=== PATIENT | male | born 1945 | race Asian ===

== ENCOUNTER 2019-11-19 14:16 | Inpatient (IN) | payer OTHER ==
--- NOTE | 2019-11-19 14:37 | PDOC ---
Rapid Medical Evaluation Time Seen by Provider: 11/19/19 14:31 Medical Evaluation: 11/19/19 14:31 CC: weakness, vomiting and COOMBS s/p fall 3 days ago. 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 Orders: Cardiac w/u, Head CT, influenza test Patient will proceed to the ED for further evaluation. Discharge Disposition - Diagnosis Weakness - Referrals - Patient Instructions - Post Discharge Activity
--- NOTE | 2019-11-19 16:58 | PDOC ---
History of Present Illness - General Chief Complaint: Weakness Stated Complaint: VOMITING Time Seen by Provider: 11/19/19 14:31 - History of Present Illness Initial Comments: 11/19/19 16:49 73 yo M with h/o DM, CVA (left facial droop) who p/w headache, dull right sided chest pain s/p fall (11-18-18). Patient at bedside to assist in report. Patient Slovak speaking. Supervisor [employer] services required. states that patient experienced fall at 2:30 PM when urinating. Patient states that he fell forward and hit his head on tile floor, with absent LOC, or convulsions. Patient on ground for 1 minute, before up, assisted by . states that patient also experienced another fall 1:00 AM this morning while standing drinking water. Patient reports pleuritic, dull right sided chest pain x 3 days , with absent cough. Endorses diffuse, dull, mild headache. Patient endorses lightheadedness x 3 months.Reports vomiting 3-4 emesis per month Endorses AC use. Patient being treated for ear infection, due to 2 weeks of right sided ear pain. 2 weeks of Amoxicillin. reports patient has had elevated BS~400's today per . Patient denies vision change, neck pain, tinnitus, palpitations, cough, wheezing, orthopena, PND, leg swelling/pain, F,C, SOB, urinary complaints, hematuria, BPR, abdominal pain, diarrhea, constipation, weakness, sensory changes. PMHx: as noted above ROS: as noted SHx: Denies Etoh, IVDA, tobacco use Allergies: NKDA Past History - Past Medical History Allergies/Adverse Reactions: Allergies Allergy/AdvReac Type Severity Reaction Status Date / Time No Known Allergies Allergy Verified 11/19/19 14:43 - Psycho Social/Smoking Cessation Hx Smoking History: Unknown if ever smoked Have you smoked in the past 12 months: No Hx Alcohol Use: No Drug/Substance Use Hx: No Review of Systems - Review of Systems Comments:: 11/19/19 17:01 GENERAL/CONSTITUTIONAL: No fever or chills. No weakness. HEAD, EYES, EARS, NOSE AND THROAT: + Ear pain. No change in vision. No discharge. No sore throat. CARDIOVASCULAR: No chest pain or shortness of breath RESPIRATORY: No cough, wheezing, or hemoptysis. GASTROINTESTINAL: + nausea, vomiting. No diarrhea or constipation. GENITOURINARY: No dysuria, frequency, or change in urination. MUSCULOSKELETAL: No joint or muscle swelling or pain. No neck or back pain. SKIN: No rash NEUROLOGIC: +headache. No vertigo, loss of consciousness, or change in strength/ sensation. ENDOCRINE: No increased thirst. No abnormal weight change HEMATOLOGIC/LYMPHATIC: No anemia, easy bleeding, or history of blood clots. ALLERGIC/IMMUNOLOGIC: No hives or skin allergy. *Physical Exam - Vital Signs Last Vital Signs Temp Pulse Resp BP Pulse Ox 97.6 F 102 H 18 122/78 96 11/19/19 14:35 11/19/19 14:35 11/19/19 14:35 11/19/19 14:35 11/19/19 14:35 - Physical Exam 11/19/19 17:02 GENERAL: Awake, alert, oriented to self, in no acute distress HEAD: No signs of trauma, normocephalic, atraumatic EYES: PERRLA, EOMI, sclera anicteric, conjunctiva clear ENT: + Dry mucous membranes. Auricles normal inspection, hearing grossly normal , nares patent, oropharynx clear without exudates. NECK: Normal ROM, supple, no lymphadenopathy, JVD, or masses LUNGS: No distress, speaks full sentences, clear to auscultation bilaterally HEART: Regular rate and rhythm, normal S1 and S2, no murmurs, rubs or gallops, peripheral pulses normal and equal bilaterally. ABDOMEN: Soft, nontender, normoactive bowel sounds. No guarding, no rebound. No masses EXTREMITIES : Normal inspection, Normal range of motion, no edema. No clubbing or cyanosis NEUROLOGICAL: + left sided facial droop, Cranial nerves II through XII grossly intact. Normal speech, no focal sensorimotor deficits BACK: Neg midline or paraspinal ttp. Neg step-off or bony deformity. Neg skin change. SKIN: Warm, Dry, normal turgor, no rashes or lesions noted ED Treatment Course - LABORATORY CBC & Chemistry Diagram: 11/19/19 16:24 11/19/19 16:24 Medical Decision Making - Medical Decision Making 11/19/19 16:58 73 yo M with h/o DM, CVA who p/w headache, right sided chest pain s/p fall (1-28 -19). GCS 14, A&OX2, HR 102, Vitals otherwise wnl, AF. No evidence head injury, or c-spine ttp. Neg evidence basilar skull fracture. No obvious skeletal abnml. Will obtain CTH r/o hemorrhage, hematoma, or skull fracture. Will evaluate for hypoglycemia, VBI/TIA, dysarrytmhias, electrolyte abnml, metabolic and toxic derangements, acid-base disturbances, infection. ED Course: CTH: No acute change 11/19/19 18:44 Laboratory Tests 11/19/19 11/19/19 16:24 16:24 WBC 13.3 H Hgb 12.7 Hct 38.2 Plt Count 294 Sodium 137 Potassium 4.2 Chloride 104 BUN 24.3 H Creatinine 0.8 Random Glucose 296 H Troponin I < 0.02 CXR: Right Middle Lobe Infiltrate Vanc/Zosyn Patient endorsed to Dr. Grissom. Admitted to med/surg Discharge - Discharge Information Problems reviewed: Yes Clinical Impression/Diagnosis: Weakness, Recurrent falls PNA (pneumonia) Qualifiers: Pneumonia type: due to unspecified organism Laterality: right Lung location: middle lobe of lung Qualified Code(s): J18.9 - Pneumonia, unspecified organism Condition: Stable - Admission Yes - Follow up/Referral Referrals: Dalton Ramirez [Primary Care Provider] - - Patient Discharge Instructions - Post Discharge Activity
[2019-11-19] MEDS ORDERED: SODIUM CHLORIDE 0.9% 1000 ML INFUS.BAG IV ONE (17:01)
[2019-11-19] MEDS ORDERED: METOCLOPRAMIDE HCL INJECTION 10 MG/2 ML VIAL IVPUSH ONE (17:01)
[2019-11-19] MEDS ORDERED: ACETAMINOPHEN 1000 MG/100 ML VIAL (NON FORMULARY) IVPB ONE (17:01)
[2019-11-19] MEDS ORDERED: METOCLOPRAMIDE HCL INJECTION 10 MG/2 ML VIAL ONE (17:13)
[2019-11-19] MEDS ORDERED: ACETAMINOPHEN INJECTION 100 ML IVPB ONE (17:13)
--- NOTE | 2019-11-19 17:47 | PDOC ---
Documentation entered by Greg Peacock SCRIBE, acting as scribe for Pat Rogers DO. Pat Rogers DO: This documentation has been prepared by the Ayush zarco Xhesika, SCRIBE, under my direction and personally reviewed by me in its entirety. I confirm that the documentation accurately reflects all work, treatment, procedures, and medical decision making performed by me. Attending Attestation - Resident Resident Name: Aaron Loco - ED Attending Attestation I have performed the following: I have examined & evaluated the patient, The case was reviewed & discussed with the resident, I agree w/resident's findings & plan, Exceptions are as noted - HPI HPI: 11/19/19 17:16 The patient is a 73 year old male with a significant PMH of DM, CVA (with residual L facial droop) who presents to the emergency department for s/p 2 falls. Pt is a poor historian but at bedside providing history. Per , the patient had his first fall yesterday at 2:30 PM when urinating. Pt states he hit his head on the floor, was on the floor for 1 minutes prior to helping him up. Patient denies LOC. states pt then had another fall today at 1am while standing, drinking water. states the patient is being treated with amoxicillin for an ear infection. The patient denies shortness of breath, and dizziness. Denies fever, chills, cough, nausea, vomiting, diarrhea and constipation. Denies dysuria, frequency, urgency and hematuria. Allergies: NKDA PCP: Dalton Brambila - Physicial Exam PE: 11/19/19 17:17 GENERAL: Awake, alert, and fully oriented, in no acute distress HEAD: No signs of trauma EYES: PERRLA, EOMI, sclera anicteric, conjunctiva clear ENT: +wax in canals. Normal TM. No bulging. Poor dentition. oropharynx clear without exudates. +dry mucosa. +L facial drrop from previous CVA. NECK: Normal ROM, supple, no lymphadenopathy, JVD, or masses LUNGS: Breath sounds equal, clear to auscultation bilaterally. No wheezes, and no crackles HEART: Regular rate and rhythm, normal S1 and S2, no murmurs, rubs or gallops ABDOMEN: Soft, nontender, normoactive bowel sounds. No guarding, no rebound. No masses EXTREMITIES: Normal range of motion, no edema. No clubbing or cyanosis. No cords, erythema, or tenderness NEUROLOGICAL: Cranial nerves II through XII grossly intact. SKIN: Warm, Dry, normal turgor, no rashes or lesions noted. - Medical Decision Making 11/19/19 17:46 I, Dr. Pat Rogers, DO, attest that this document has been prepared under my direction and personally reviewed by me in its entirety. I further attest, that it accurately reflects all work, treatment, procedures and medical decision -making performed by me. a/p: 73yo male s/p 2 falls yesterday, weakness, elevated glu and R sided cp -4 days of cp -has been on amox for ear infection from his PMD -pt states he felt weak while standing to urinate and fell twice -pt with dry cracked lips and tongue -no external signs of trauma -pt denies f/c -no abd pain -will send labs, head ct, ekg, cxr -will need obs vs admission 11/19/19 18:[address] with microvasc chronic changes, old infarct pt with cp and falls resident discussed the case with Dr. Grissom who accepts pt to service 11/19/19 18:45 pt with RML pna will add blood cultures and will start broad spectrum abx pt has been on augmentin for an ear infection for 2 weeks 11/19/19 18:46 pt with wbc 13 pt will be admitted
[2019-11-19 17:51] LABS: BASO % 0.2 % (0-2.0); EOS % 0.8 % (0-4.5); HEMATOCRIT 38.2 % (35.4-49); HEMOGLOBIN 12.7 GM/dL (11.7-16.9); LYMPH % 7.3 % (8-40); MCHC 33.2 g/dl (32.0-35.9); MEAN CELL VOLUME 93.6 fl (80-96); MEAN PLT VOLUME 7.3 fl (7.5-11.1); MONO % 6.9 % (3.8-10.2); NEUT % 84.8 % (42.8-82.8); PLATELET COUNT 294 K/MM3 (134-434); RBC 4.08 M/mm3 (4.00-5.60); RDW 13.4 % (11.9-15.9); WHITE BLOOD COUNT 13.3 K/mm3 (4.0-10.0)
[2019-11-19 17:54] LABS: ALBUMIN 2.5 g/dl (3.4-5.0); ALK PHOS 83 U/L (45-117); ANION GAP 10 MMOL/L (8-16); BILIRUBIN,TOTAL 0.5 mg/dL (0.2-1); BLOOD UREA NITROGEN 24.3 mg/dL (7-18); CALCIUM 8.3 mg/dL (8.5-10.1); CHLORIDE 104 mmol/L (98-107); CO2 24 mmol/L (21-32); CREATININE 0.8 mg/dL (0.55-1.3); GLUCOSE,RANDOM 296 mg/dL (74-106); LIPASE 86 U/L (73-393); MAGNESIUM 2.2 mg/dL (1.8-2.4); POTASSIUM 4.2 mmol/L (3.5-5.1); SGOT/AST 11 U/L (15-37); SGPT/ALT 14 U/L (13-61); SODIUM 137 mmol/L (136-145); TOT PROT 6.4 g/dl (6.4-8.2)
[2019-11-19 18:04] LABS: INR 1.1 (0.83-1.09)
[2019-11-19 18:07] LABS: ACTIVATED PTT 24.2 SECONDS (25.2-36.5)
[2019-11-19] MEDS ORDERED: PIPERACILLIN/TAZOB 4.5 GM 4.5 GM in DEXTROSE 5%-WATER 100 ML IVPB ONE (18:45)
[2019-11-19] MEDS ORDERED: VANCOMYCIN 1 GM in D5W (PRE-DOCKED) 1,000 MG/250 ML IVPB ONE (18:45)
[2019-11-19] MEDS ORDERED: PIPERACILLIN/TAZOB 4.5 GM 4.5 GM/100 ML BAG IVPB ONE (19:25)
[2019-11-19] MEDS ORDERED: VANCOMYCIN 1 GRAM (PRE-DOCKED) 1,000 MG/250 ML BAG IVPB ONE (19:25)
--- NOTE | 2019-11-19 20:57 | HP ---
Admitting History and Physical - Primary Care Physician PCP: Yanet Grissom - Admission History of Present Illness: 73 yo M with h/o DM, CVA (left facial droop) who p/w headache, dull right sided chest pain s/p fall (11-18-18). Patient at bedside to assist in report. Patient Hebrew speaking. [employer] services required. states that patient experienced fall at 2:30 PM when urinating. Patient states that he fell forward and hit his head on tile floor, with absent LOC, or convulsions. Patient on ground for 1 minute, before up, assisted by . states that patient also experienced another fall 1:00 AM this morning while standing drinking water. Patient reports pleuritic, dull right sided chest pain x 3 days , with absent cough. Endorses diffuse, dull, mild headache. Patient endorses lightheadedness x 3 months.Reports vomiting 3-4 emesis per month Endorses AC use. Patient being treated for ear infection, due to 2 weeks of right sided ear pain. 2 weeks of Amoxicillin. reports patient has had elevated BS~400's today per . Patient denies vision change, neck pain, tinnitus, palpitations, cough, wheezing, orthopena, PND, leg swelling/pain, F,C, SOB, urinary complaints, hematuria, BPR, abdominal pain, diarrhea, constipation, weakness, sensory changes. 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 Endocrine: Yes: Diabetes Mellitus - Smoking History Smoking history: Unknown if ever smoked Have you smoked in the past 12 months: No - Alcohol/Substance Use Hx Alcohol Use: No Home Medications - Allergies Allergies/Adverse Reactions: Allergies Allergy/AdvReac Type Severity Reaction Status Date / Time No Known Allergies Allergy Verified 11/19/19 14:43 Physical Examination Vital Signs: Vital Signs Temperature 97.6 F 11/19/19 14:35 Pulse Rate 102 H 11/19/19 14:35 Respiratory Rate 18 11/19/19 14:35 Blood Pressure 122/78 11/19/19 14:35 O2 Sat by Pulse Oximetry (%) 96 11/19/19 14:35 Constitutional: Yes: No Distress HENT: Yes: Atraumatic Neck: Yes: Supple Cardiovascular: Yes: Regular Rate and Rhythm Respiratory: Yes: CTA Bilaterally Gastrointestinal: Yes: Normal Bowel Sounds Extremities: Yes: WNL Labs: CBC, BMP 11/19/19 16:24 11/19/19 16:24 Imaging - Results Cat Scan: Report Reviewed Problem List - Problems (1) PNA (pneumonia) Assessment/Plan: on abx id on board cxs sent Code(s): J18.9 - PNEUMONIA, UNSPECIFIED ORGANISM Qualifiers: Pneumonia type: due to unspecified organism Laterality: right Lung location: middle lobe of lung Qualified Code(s): J18.9 - Pneumonia, unspecified organism (2) Recurrent falls Assessment/Plan: PT eval Code(s): R29.6 - REPEATED FALLS (3) Weakness Code(s): R53.1 - WEAKNESS Assessment/Plan Laboratory Tests 11/19/19 11/19/19 11/19/19 16:24 16:24 16:24 WBC 13.3 H RBC 4.08 Hgb 12.7 Hct 38.2 MCV 93.6 MCH 31.0 MCHC 33.2 RDW 13.4 Plt Count 294 MPV 7.3 L Absolute Neuts (auto) 11.2 H Neutrophils % 84.8 H Lymphocytes % 7.3 L Monocytes % 6.9 Eosinophils % 0.8 Basophils % 0.2 Nucleated RBC % 0 PT with INR 13.00 INR 1.10 H PTT (Actin FS) 24.2 L Sodium 137 Potassium 4.2 Chloride 104 Carbon Dioxide 24 Anion Gap 10 BUN 24.3 H Creatinine 0.8 Est GFR (CKD-EPI)AfAm 101.99 Est GFR (CKD-EPI)NonAf 88.00 Random Glucose 296 H Calcium 8.3 L Magnesium 2.2 Total Bilirubin 0.5 AST 11 L ALT 14 Alkaline Phosphatase 83 Creatine Kinase 102 Troponin I < 0.02 Total Protein 6.4 Albumin 2.5 L Lipase 86 Active Medications Generic Name Dose Route Start Last Admin Trade Name Freq PRN Reason Stop Dose Admin Acetaminophen 650 mg 11/19/19 20:59 Tylenol - PO Q6H PRN FEVER Heparin Sodium (Porcine) 5,000 unit 11/19/19 22:00 11/21/19 10:34 Heparin - SQ 5,000 unit BID STEVE Administration Ceftriaxone Sodium 1 gm/ 50 mls @ 100 mls/hr 11/20/19 14:30 11/21/19 10:34 Dextrose IVPB 100 mls/hr DAILY STEVE Administration Protocol Insulin Aspart 1 vial 11/19/19 22:00 11/21/19 17:12 Novolog Vial Sliding Scale - SQ 6 units ACHS STEVE Administration Protocol
[2019-11-19] MEDS ORDERED: ACETAMINOPHEN 325 MG TABLET (FP) PO PRN (20:59)
[2019-11-19 21:22] LABS: URINE APPEARANCE CLEAR; URINE BILIRUBIN NEGATIVE (NEGATIVE); URINE COLOR YELLOW; URINE GLUCOSE (UA) 3+ (NEGATIVE); URINE KETONE 1+ (NEGATIVE); URINE LEUK ESTERASE NEGATIVE (NEGATIVE); URINE NITRITE NEGATIVE (NEGATIVE); URINE PROTEIN TRACE (NEGATIVE); URINE UROBILINOGEN 0.2 mg/dL (0.2-1.0)
--- NOTE | 2019-11-19 23:54 | CON.NEURO ---
Consult Consult Specialty:: NEUROLOGY-EMILIA REHMAN - History of Present Illness History of Present Illness: 73 yo M with h/o DM, CVA (left facial droop) who p/w headache, dull right sided chest pain s/p fall (11-18-18). Patient at bedside to assist in report. Patient Nepali speaking. 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 states that patient experienced fall at 2:30 PM when urinating. Patient states that he fell forward and hit his head on tile floor, with absent LOC, or convulsions. Patient on ground for 1 minute, before up, assisted by . states that patient also experienced another fall 1:00 AM this morning while standing drinking water. Patient reports pleuritic, dull right sided chest pain x 3 days , with absent cough. Endorses diffuse, dull, mild headache. Patient endorses lightheadedness x 3 months.Reports vomiting 3-4 emesis per month Endorses AC use. Patient being treated for ear infection, due to 2 weeks of right sided ear pain. 2 weeks of Amoxicillin. reports patient has had elevated BS~400's today per . Patient denies vision change, neck pain, tinnitus, palpitations, cough, wheezing, orthopena, PND, leg swelling/pain, F,C, SOB, urinary complaints, hematuria, BPR, abdominal pain, diarrhea, constipation, weakness, sensory changes. Unable to relate further hx but appears to say he becomes 'lightheaded " and tends to fall forward, uses walker.?? duration. 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 Endocrine: Yes: Diabetes Mellitus - Alcohol/Substance Use Hx Alcohol Use: No - Smoking History Smoking history: Unknown if ever smoked Have you smoked in the past 12 months: No Home Medications - Allergies Allergies/Adverse Reactions: Allergies Allergy/AdvReac Type Severity Reaction Status Date / Time No Known Allergies Allergy Verified 11/19/19 14:43 Physical Exam-Neuro Vital Signs: Vital Signs Temperature 97.6 F 11/19/19 14:35 Pulse Rate 102 H 11/19/19 14:35 Respiratory Rate 18 11/19/19 14:35 Blood Pressure 122/78 11/19/19 14:35 O2 Sat by Pulse Oximetry (%) 96 11/19/19 14:35 Labs: CBC, BMP 11/19/19 16:24 11/19/19 16:24 INR, PTT INR 1.10 (0.83-1.09) H 11/19/19 16:24 - Neuro Exam Level Of Consciousness: Yes: Alert (unable to test est) Eyes: Yes: PERRL Mini Mental Exam: Unable to test but appears distractible Cranial Nerves II-XII Intact: Yes DTR's: 1+ Left Achilles, 1+ Right Achilles (bilat knees are 3+), 2+ Left Bicep, 2+ Right Bicep, 2+ Left Tricep, 2+ Right Tricep, 2+ Left Brachioradialis, 2+ Right Brachioradialis Motor Strength: 5/5: Left Arm, Right Arm, Left Leg, Right Leg Gait: Other (wide based, has increased tone in both legs?? urinary incontinence) Imaging - Results Cat Scan: Report Reviewed (old pontine lacunar infarcts) Assessment/Plan pt. with falls x2, he has a gait [id number] with walker), exam reveals increased tone in legs, bilat upgoing toes?? urinary incont. He may have fallen this time 2/2 dehydration/dizziness but not clear why he fell earlier this month?? cervical myelopathy given exam. suggest: fall precautions, B12, MRI Cspine, PT/ Rehab evaluation. Thank you, Stalin Torrez MD
[2019-11-20] MEDS ORDERED: HEPARIN NA (PORCINE) 5,000 UNITS/ML 1ML VIAL ONE (00:02)
[2019-11-20] MEDS: HEPARIN NA (PORCINE) 5,000 UNITS/ML 1ML VIAL SQ SCH ×3 (00:09→23:01)
[2019-11-20] MEDS ORDERED: INSULIN (NOVOLOG) ASPART 100 UNITS/ML 10ML VIAL ONE (00:58)
[2019-11-20] MEDS: INSULIN SLIDING SCALE (NOVOLOG) 1 VIAL SQ SCH ×5 (01:04→23:03)
[2019-11-20 08:21] LABS: ALBUMIN 2.4 g/dl (3.4-5.0); BILIRUBIN,TOTAL 0.8 mg/dL (0.2-1); BLOOD UREA NITROGEN 19.9 mg/dL (7-18); CALCIUM 8.2 mg/dL (8.5-10.1); CREATININE 0.6 mg/dL (0.55-1.3); POTASSIUM 3.6 mmol/L (3.5-5.1)
[2019-11-20 08:23] LABS: BASO % 0.2 % (0-2.0); EOS % 1.7 % (0-4.5); HEMATOCRIT 35.3 % (35.4-49); HEMOGLOBIN 11.9 GM/dL (11.7-16.9); LYMPH % 7.4 % (8-40); MCH 31.4 pg (25.7-33.7); MCHC 33.7 g/dl (32.0-35.9); MEAN CELL VOLUME 93.1 fl (80-96); MEAN PLT VOLUME 7.1 fl (7.5-11.1); MONO % 7.3 % (3.8-10.2); NEUT % 83.4 % (42.8-82.8); PLATELET COUNT 282 K/MM3 (134-434); RBC 3.79 M/mm3 (4.00-5.60); RDW 13.3 % (11.9-15.9); WHITE BLOOD COUNT 11.7 K/mm3 (4.0-10.0)
--- NOTE | 2019-11-20 12:40 | EKG ---
Test Reason : Blood Pressure : / mmHG Vent. Rate : 073 BPM Atrial Rate : 073 BPM P-R Int : 174 ms QRS Dur : 098 ms QT Int : 398 ms P-R-T Axes : 030 -32 022 degrees QTc Int : 438 ms NORMAL SINUS RHYTHM LEFT AXIS DEVIATION INCOMPLETE RIGHT BUNDLE BRANCH BLOCK ABNORMAL ECG NO PREVIOUS ECGS AVAILABLE Confirmed by LIS LANDERS MD ([id number]) on 11/20/2019 12:39:50 PM Referred By: Confirmed By:LIS LANDERS MD
--- NOTE | 2019-11-20 14:24 | CON.ID ---
Consult Consult Specialty:: infectious diseases Referred by:: Reason for Consultation:: uti,falls weakness - History of Present Illness Chief Complaint: falls,weakness History of Present Illness: history given by the son who is at bedside 73 yo M with h/o DM, CVA (left facial droop) who p/w headache, dull right sided chest pain s/p fall (11-18-18). states that patient experienced fall at 2: 30 PM when urinating. Patient states that he fell forward and hit his head on tile floor, with absent LOC, or convulsions. Patient on ground for 1 minute, before up, assisted by . states that patient also experienced another fall 1:00 AM this morning while standing drinking water. Patient reports pleuritic, dull right sided chest pain x 3 days, with absent cough. Endorses diffuse, dull, mild headache. Patient endorses lightheadedness x 3 months.Reports vomiting 3-4 emesis per month Endorses AC use. Patient being treated for ear infection, due to 2 weeks of right sided ear pain. 2 weeks of Amoxicillin. reports patient has had elevated BS~400's today per . Patient denies vision change, neck pain, tinnitus, palpitations, cough, wheezing, orthopena, PND, leg swelling/pain, F,C, SOB, urinary complaints, hematuria, BPR, abdominal pain, diarrhea, constipation, weakness, sensory changes. 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 Endocrine: Yes: Diabetes Mellitus - Alcohol/Substance Use Hx Alcohol Use: No - Smoking History Smoking history: Unknown if ever smoked Have you smoked in the past 12 months: No Home Medications - Allergies Allergies/Adverse Reactions: Allergies Allergy/AdvReac Type Severity Reaction Status Date / Time No Known Allergies Allergy Verified 11/19/19 14:43 Review of Systems - Review of Systems Constitutional: reports: Weakness Eyes: reports: No Symptoms HENT: reports: No Symptoms Neck: reports: No Symptoms Cardiovascular: reports: No Symptoms Respiratory: reports: No Symptoms Gastrointestinal: reports: No Symptoms Genitourinary: reports: No Symptoms Musculoskeletal: reports: No Symptoms Integumentary: reports: No Symptoms Neurological: reports: No Symptoms Endocrine: reports: No Symptoms Hematology/Lymphatic: reports: No Symptoms Psychiatric: reports: No Symptoms Physical Exam Vital Signs: Vital Signs Temperature 97.9 F 11/20/19 00:45 Pulse Rate 67 11/20/19 00:45 Respiratory Rate 16 11/20/19 00:45 Blood Pressure 107/61 11/20/19 00:45 O2 Sat by Pulse Oximetry (%) 96 11/20/19 00:45 Constitutional: Yes: No Distress, Calm Eyes: Yes: Conjunctiva Clear, EOM Intact HENT: Yes: Atraumatic, Normocephalic Neck: Yes: Supple, Trachea Midline Cardiovascular: Yes: Regular Rate and Rhythm Respiratory: Yes: Regular, CTA Bilaterally Gastrointestinal: Yes: Normal Bowel Sounds, Soft Musculoskeletal: Yes: WNL Extremities: Yes: WNL Neurological: Yes: Alert, Oriented Psychiatric: Yes: Alert, Oriented Labs: CBC, BMP 11/20/19 06:50 11/20/19 06:50 Imaging - Results Chest X-ray: Report Reviewed, Image Reviewed Cat Scan: Report Reviewed, Image Reviewed Assessment/Plan Problem List - Problems (1) PNA (pneumonia) Code(s): J18.9 - PNEUMONIA, UNSPECIFIED ORGANISM Qualifiers: Pneumonia type: due to unspecified organism Laterality: right Lung location: middle lobe of lung Qualified Code(s): J18.9 - Pneumonia, unspecified organism (2) Recurrent falls Code(s): R29.6 - REPEATED FALLS (3) Weakness Code(s): R53.1 - WEAKNESS 4 r/o uti patient with rt middle infiltrate probably aspiration plan will start ceftriaxone asp precautions await for urine report rest as per the team
[2019-11-20] MEDS: CEFTRIAXONE 1 GM in DEXTROSE 5%-WATER - 50 ML IVPB SCH (15:57)
[2019-11-20] MEDS ORDERED: CEFTRIAXONE 1 GM/50 ML BAG ONE (16:31)
--- NOTE | 2019-11-20 17:00 | PN ---
Progress Note, Physician - Current Medication List Current Medications: Active Medications Acetaminophen (Tylenol -) 650 mg PO Q6H PRN PRN Reason: FEVER Heparin Sodium (Porcine) (Heparin -) 5,000 unit SQ BID [facility] Last Admin: 11/20/19 09:35 Dose: 5,000 unit Ceftriaxone Sodium 1 gm/ (Dextrose) 50 mls @ 100 mls/hr IVPB DAILY [facility]; Protocol Last Admin: 11/20/19 15:57 Dose: 100 mls/hr Insulin Aspart (Novolog Vial Sliding Scale -) 1 vial SQ ACHS [facility]; Protocol Last Admin: 11/20/19 13:01 Dose: 4 units - Objective Vital Signs: Vital Signs Temperature 97.9 F 11/20/19 00:45 Pulse Rate 67 11/20/19 00:45 Respiratory Rate 16 11/20/19 00:45 Blood Pressure 107/61 11/20/19 00:45 O2 Sat by Pulse Oximetry (%) 96 11/20/19 00:45 Constitutional: Yes: No Distress HENT: Yes: Atraumatic Neck: Yes: Supple Cardiovascular: Yes: Regular Rate and Rhythm Respiratory: Yes: Rhonchi Gastrointestinal: Yes: Normal Bowel Sounds Extremities: Yes: WNL Labs: CBC, BMP 11/20/19 06:50 11/20/19 06:50 INR, PTT INR 1.10 (0.83-1.09) H 11/19/19 16:24 Problem List - Problems (1) PNA (pneumonia) Assessment/Plan: on abx id on board Code(s): J18.9 - PNEUMONIA, UNSPECIFIED ORGANISM Qualifiers: Pneumonia type: due to unspecified organism Laterality: right Lung location: middle lobe of lung Qualified Code(s): J18.9 - Pneumonia, unspecified organism (2) Recurrent falls Assessment/Plan: PT eval Code(s): R29.6 - REPEATED FALLS (3) Weakness Code(s): R53.1 - WEAKNESS
[2019-11-20] MEDS ORDERED: FLU VACCINE QUAD 60 MCG/0.5 ML (MDV 19-20) IM ONE (23:24)
[2019-11-20 23:57] VITALS: BMI 22.4
[2019-11-21] MEDS: INSULIN SLIDING SCALE (NOVOLOG) 1 VIAL SQ SCH ×4 (07:21→22:07)
--- NOTE | 2019-11-21 09:31 | PN ---
Progress Note, Physician History of Present Illness: patient stable looks much better - Current Medication List Current Medications: Active Medications Acetaminophen (Tylenol -) 650 mg PO Q6H PRN PRN Reason: FEVER Heparin Sodium (Porcine) (Heparin -) 5,000 unit SQ BID [facility] Last Admin: 11/20/19 23:01 Dose: 5,000 unit Ceftriaxone Sodium 1 gm/ (Dextrose) 50 mls @ 100 mls/hr IVPB DAILY [facility]; Protocol Last Admin: 11/20/19 15:57 Dose: 100 mls/hr Insulin Aspart (Novolog Vial Sliding Scale -) 1 vial SQ ACHS [facility]; Protocol Last Admin: 11/21/19 07:21 Dose: 6 units - Objective Vital Signs: Vital Signs Temperature 98.1 F 11/21/19 06:00 Pulse Rate 90 11/21/19 06:00 Respiratory Rate 18 11/21/19 06:00 Blood Pressure 145/70 11/21/19 06:00 O2 Sat by Pulse Oximetry (%) 96 11/20/19 23:13 Constitutional: Yes: No Distress, Calm Cardiovascular: Yes: S1, S2 Respiratory: Yes: Regular, CTA Bilaterally Gastrointestinal: Yes: Normal Bowel Sounds, Soft Musculoskeletal: Yes: WNL Extremities: Yes: WNL Neurological: Yes: Alert, Oriented Psychiatric: Yes: Alert, Oriented Labs: CBC, BMP 11/20/19 06:50 11/20/19 06:50 INR, PTT INR 1.10 (0.83-1.09) H 11/19/19 16:24 Assessment/Plan Problem List - Problems (1) PNA (pneumonia) Code(s): J18.9 - PNEUMONIA, UNSPECIFIED ORGANISM Qualifiers: Pneumonia type: due to unspecified organism Laterality: right Lung location: middle lobe of lung Qualified Code(s): J18.9 - Pneumonia, unspecified organism (2) Recurrent falls Code(s): R29.6 - REPEATED FALLS (3) Weakness Code(s): R53.1 - WEAKNESS 4 r/o uti patient with rt middle infiltrate probably aspiration plan abx as per the team neurology rest as per the team
[2019-11-21] MEDS ORDERED: cefTRIAXone SODIUM 1 GM VIAL ONE (10:28)
[2019-11-21] MEDS ORDERED: DEXTROSE 5%-WATER - 50 ML IVPB ONE (10:29)
[2019-11-21] MEDS: HEPARIN NA (PORCINE) 5,000 UNITS/ML 1ML VIAL SQ SCH ×2 (10:34→22:06)
[2019-11-21] MEDS: CEFTRIAXONE 1 GM in DEXTROSE 5%-WATER - 50 ML IVPB SCH (10:34)
--- NOTE | 2019-11-21 19:51 | PN ---
Progress Note, Physician - Current Medication List Current Medications: Active Medications Acetaminophen (Tylenol -) 650 mg PO Q6H PRN PRN Reason: FEVER Heparin Sodium (Porcine) (Heparin -) 5,000 unit SQ BID [facility] Last Admin: 11/21/19 10:34 Dose: 5,000 unit Ceftriaxone Sodium 1 gm/ (Dextrose) 50 mls @ 100 mls/hr IVPB DAILY [facility]; Protocol Last Admin: 11/21/19 10:34 Dose: 100 mls/hr Insulin Aspart (Novolog Vial Sliding Scale -) 1 vial SQ ACHS [facility]; Protocol Last Admin: 11/21/19 17:12 Dose: 6 units - Objective Vital Signs: Vital Signs Temperature 98.6 F 11/21/19 17:16 Pulse Rate 77 11/21/19 17:16 Respiratory Rate 11/21/19 17:16 Blood Pressure 147/84 11/21/19 17:16 O2 Sat by Pulse Oximetry (%) 94 L 11/21/19 09:00 Constitutional: Yes: No Distress HENT: Yes: Atraumatic Neck: Yes: Supple Cardiovascular: Yes: Regular Rate and Rhythm Respiratory: Yes: CTA Bilaterally Gastrointestinal: Yes: Normal Bowel Sounds Extremities: Yes: WNL Edema: No Neurological: Yes: Alert Labs: CBC, BMP 11/20/19 06:50 11/20/19 06:50 INR, PTT INR 1.10 (0.83-1.09) H 11/19/19 16:24 Problem List - Problems (1) PNA (pneumonia) Assessment/Plan: on abx id on board Code(s): J18.9 - PNEUMONIA, UNSPECIFIED ORGANISM Qualifiers: Pneumonia type: due to unspecified organism Laterality: right Lung location: middle lobe of lung Qualified Code(s): J18.9 - Pneumonia, unspecified organism (2) Recurrent falls Assessment/Plan: PT eval Code(s): R29.6 - REPEATED FALLS (3) Weakness Code(s): R53.1 - WEAKNESS
[2019-11-22] MEDS: INSULIN SLIDING SCALE (NOVOLOG) 1 VIAL SQ SCH ×4 (07:02→22:27)
[2019-11-22] MEDS ORDERED: DEXTROSE 5%-WATER - 50 ML IVPB ONE (10:10)
[2019-11-22] MEDS ORDERED: cefTRIAXone SODIUM 1 GM VIAL ONE (10:10)
[2019-11-22] MEDS: CEFTRIAXONE 1 GM in DEXTROSE 5%-WATER - 50 ML IVPB SCH (10:13)
[2019-11-22] MEDS: HEPARIN NA (PORCINE) 5,000 UNITS/ML 1ML VIAL SQ SCH ×2 (10:14→22:26)
--- NOTE | 2019-11-22 12:51 | PN ---
Progress Note, Physician - Current Medication List Current Medications: Active Medications Acetaminophen (Tylenol -) 650 mg PO Q6H PRN PRN Reason: FEVER Clopidogrel Bisulfate (Plavix -) 75 mg PO DAILY [facility] Doxazosin Mesylate (Cardura -) 2 mg PO HS [facility] Heparin Sodium (Porcine) (Heparin -) 5,000 unit SQ BID [facility] Last Admin: 11/22/19 10:14 Dose: 5,000 unit Ceftriaxone Sodium 1 gm/ (Dextrose) 50 mls @ 100 mls/hr IVPB DAILY [facility]; Protocol Last Admin: 11/22/19 10:13 Dose: 100 mls/hr Insulin Aspart (Novolog Vial Sliding Scale -) 1 vial SQ ACHS [facility]; Protocol Last Admin: 11/22/19 12:11 Dose: 10 units Losartan Potassium (Cozaar -) 50 mg PO DAILY [facility] Metformin HCl (Glucophage -) 850 mg PO BIDAC [facility] Non-Formulary Medication (Simvastatin [Simvastatin]) 5 mg PO HS [facility] Pregabalin (Lyrica -) 150 mg PO DAILY [facility] Venlafaxine HCl (Effexor Xr -) 37.5 mg PO DAILY [facility] - Objective Vital Signs: Vital Signs Temperature 98.3 F 11/22/19 05:05 Pulse Rate 76 11/22/19 05:05 Respiratory Rate 20 11/22/19 05:05 Blood Pressure 134/70 11/22/19 05:05 O2 Sat by Pulse Oximetry (%) 97 11/21/19 20:02 Constitutional: Yes: No Distress HENT: Yes: Atraumatic Neck: Yes: Supple Cardiovascular: Yes: Regular Rate and Rhythm Respiratory: Yes: CTA Bilaterally Gastrointestinal: Yes: Normal Bowel Sounds Extremities: Yes: WNL Edema: No Peripheral Pulses WNL: Yes Neurological: Yes: Alert, Oriented Labs: CBC, BMP 11/20/19 06:50 11/20/19 06:50 INR, PTT INR 1.10 (0.83-1.09) H 11/19/19 16:24 Problem List - Problems (1) PNA (pneumonia) Assessment/Plan: on abx id on board Code(s): J18.9 - PNEUMONIA, UNSPECIFIED ORGANISM Qualifiers: Pneumonia type: due to unspecified organism Laterality: right Lung location: middle lobe of lung Qualified Code(s): J18.9 - Pneumonia, unspecified organism (2) Recurrent falls Assessment/Plan: PT eval Code(s): R29.6 - REPEATED FALLS (3) Weakness Code(s): R53.1 - WEAKNESS
[2019-11-22] MEDS: PREGABALIN 50 MG CAPSULE PO SCH (13:20)
[2019-11-22] MEDS: CLOPIDOGREL BISULFATE 75 MG TABLET (FP) PO SCH (13:21)
[2019-11-22] MEDS: LOSARTAN POTASSIUM 50 MG TABLET (FP) PO SCH (13:21)
[2019-11-22] MEDS ORDERED: PT OWN MED DRAWER 7, Y5N ONE ×3 (13:38→21:31)
[2019-11-22] MEDS: VENLAFAXINE HCL 37.5 MG E.R. CAPSULE PO SCH (13:39)
[2019-11-22] MEDS ORDERED: INSULIN (NOVOLOG) ASPART 100 UNITS/ML 10ML VIAL ONE (17:28)
--- NOTE | 2019-11-22 19:35 | PN ---
Progress Note, Physician History of Present Illness: Pt is alert, without respiratory distress. Afebrile. - Current Medication List Current Medications: Active Medications Acetaminophen (Tylenol -) 650 mg PO Q6H PRN PRN Reason: FEVER Atorvastatin Calcium (Lipitor -) 10 mg PO HS [facility] Clopidogrel Bisulfate (Plavix -) 75 mg PO DAILY [facility] Last Admin: 11/22/19 13:21 Dose: 75 mg Doxazosin Mesylate (Cardura -) 2 mg PO HS [facility] Heparin Sodium (Porcine) (Heparin -) 5,000 unit SQ BID [facility] Last Admin: 11/22/19 10:14 Dose: 5,000 unit Ceftriaxone Sodium 1 gm/ (Dextrose) 50 mls @ 100 mls/hr IVPB DAILY [facility]; Protocol Last Admin: 11/22/19 10:13 Dose: 100 mls/hr Insulin Aspart (Novolog Vial Sliding Scale -) 1 vial SQ ACHS [facility]; Protocol Last Admin: 11/22/19 17:28 Dose: 10 units Losartan Potassium (Cozaar -) 50 mg PO DAILY [facility] Last Admin: 11/22/19 13:21 Dose: 50 mg Metformin HCl (Glucophage -) 850 mg PO BIDAC [facility] Last Admin: 11/22/19 17:27 Dose: 850 mg Pregabalin (Lyrica -) 150 mg PO DAILY [facility] Last Admin: 11/22/19 13:20 Dose: 150 mg Venlafaxine HCl (Effexor Xr -) 37.5 mg PO DAILY [facility] Last Admin: 11/22/19 13:39 Dose: 37.5 mg - Objective Vital Signs: Vital Signs Temperature 98.2 F 11/22/19 18:19 Pulse Rate 78 11/22/19 18:19 Respiratory Rate 20 11/22/19 18:19 Blood Pressure 156/87 11/22/19 18:19 O2 Sat by Pulse Oximetry (%) 94 L 11/22/19 09:00 Constitutional: Yes: No Distress, Calm Cardiovascular: Yes: Regular Rate and Rhythm Respiratory: Yes: Rhonchi (Rt) Gastrointestinal: Yes: Normal Bowel Sounds, Soft Genitourinary: Yes: WNL Integumentary: Yes: WNL Neurological: Yes: Alert Labs: CBC, BMP 11/20/19 06:50 11/20/19 06:50 INR, PTT INR 1.10 (0.83-1.09) H 11/19/19 16:24 Laboratory Results - last 24 hr 11/21/19 11/21/19 11/22/19 21:04 22:03 07:00 POC Glucometer 267 266 223 11/22/19 11/22/19 12:10 17:26 POC Glucometer 331 304 Microbiology 11/20/19 14:15 Blood - Peripheral Venous Blood Culture - Preliminary NO GROWTH OBTAINED AFTER 48 HOURS, INCUBATION TO CONTINUE FOR 3 DAYS. 11/20/19 14:15 Blood - Peripheral Venous Blood Culture - Preliminary NO GROWTH OBTAINED AFTER 48 HOURS, INCUBATION TO CONTINUE FOR 3 DAYS. 11/19/19 20:40 Urine - Urine Clean Catch Urine Culture - Final NO GROWTH OBTAINED - ....Imaging Chest X-ray: Report Reviewed Problem List - Problems (1) PNA (pneumonia) Code(s): J18.9 - PNEUMONIA, UNSPECIFIED ORGANISM Qualifiers: Pneumonia type: due to unspecified organism Laterality: right Lung location: middle lobe of lung Qualified Code(s): J18.9 - Pneumonia, unspecified organism (2) Recurrent falls Code(s): R29.6 - REPEATED FALLS (3) Weakness Code(s): R53.1 - WEAKNESS Assessment/Plan -- Pt without respiratory distress, alert -- wbc trending down, afebrile -- continue Ceftriaxone for now
[2019-11-22] MEDS: ATORVASTATIN CA 10 MG TABLET (FP) PO SCH (22:17)
[2019-11-22] MEDS: DOXAZOSIN MESYLATE 2 MG TABLET PO SCH (22:26)
[2019-11-23] MEDS ORDERED: PT OWN MED DRAWER 7, Y5N ONE ×4 (06:17→21:43)
[2019-11-23] MEDS: INSULIN SLIDING SCALE (NOVOLOG) 1 VIAL SQ SCH ×4 (06:42→22:38)
[2019-11-23] MEDS ORDERED: cefTRIAXone SODIUM 1 GM VIAL ONE (09:18)
[2019-11-23] MEDS ORDERED: DEXTROSE 5%-WATER - 50 ML IVPB ONE (09:19)
[2019-11-23] MEDS: LOSARTAN POTASSIUM 50 MG TABLET (FP) PO SCH (09:26)
[2019-11-23] MEDS: CLOPIDOGREL BISULFATE 75 MG TABLET (FP) PO SCH (09:26)
[2019-11-23] MEDS: PREGABALIN 50 MG CAPSULE PO SCH (09:26)
[2019-11-23] MEDS: VENLAFAXINE HCL 37.5 MG E.R. CAPSULE PO SCH (09:26)
[2019-11-23] MEDS: HEPARIN NA (PORCINE) 5,000 UNITS/ML 1ML VIAL SQ SCH ×2 (09:26→22:38)
[2019-11-23] MEDS: CEFTRIAXONE 1 GM in DEXTROSE 5%-WATER - 50 ML IVPB SCH (09:27)
--- NOTE | 2019-11-23 16:30 | PN ---
Progress Note, Physician - Current Medication List Current Medications: Active Medications Acetaminophen (Tylenol -) 650 mg PO Q6H PRN PRN Reason: FEVER Atorvastatin Calcium (Lipitor -) 10 mg PO HS [facility] Last Admin: 11/22/19 22:17 Dose: 10 mg Clopidogrel Bisulfate (Plavix -) 75 mg PO DAILY [facility] Last Admin: 11/23/19 09:26 Dose: 75 mg Doxazosin Mesylate (Cardura -) 2 mg PO HS [facility] Last Admin: 11/22/19 22:26 Dose: 2 mg Heparin Sodium (Porcine) (Heparin -) 5,000 unit SQ BID [facility] Last Admin: 11/23/19 09:26 Dose: 5,000 unit Ceftriaxone Sodium 1 gm/ (Dextrose) 50 mls @ 100 mls/hr IVPB DAILY [facility]; Protocol Last Admin: 11/23/19 09:27 Dose: 100 mls/hr Insulin Aspart (Novolog Vial Sliding Scale -) 1 vial SQ ACHS [facility]; Protocol Last Admin: 11/23/19 11:54 Dose: 8 units Losartan Potassium (Cozaar -) 50 mg PO DAILY [facility] Last Admin: 11/23/19 09:26 Dose: 50 mg Metformin HCl (Glucophage -) 850 mg PO BIDAC [facility] Last Admin: 11/23/19 06:42 Dose: 850 mg Pregabalin (Lyrica -) 150 mg PO DAILY [facility] Last Admin: 11/23/19 09:26 Dose: 150 mg Venlafaxine HCl (Effexor Xr -) 37.5 mg PO DAILY [facility] Last Admin: 11/23/19 09:26 Dose: 37.5 mg - Objective Vital Signs: Vital Signs Temperature 98.3 F 11/23/19 14:45 Pulse Rate 88 11/23/19 14:45 Respiratory Rate 20 11/23/19 14:45 Blood Pressure 140/78 11/23/19 14:45 O2 Sat by Pulse Oximetry (%) 94 L 11/23/19 09:00 Constitutional: Yes: No Distress HENT: Yes: Atraumatic Neck: Yes: Supple Cardiovascular: Yes: Regular Rate and Rhythm Respiratory: Yes: CTA Bilaterally Gastrointestinal: Yes: Normal Bowel Sounds Extremities: Yes: WNL Neurological: Yes: Alert, Oriented Labs: CBC, BMP 11/20/19 06:50 11/20/19 06:50 INR, PTT INR 1.10 (0.83-1.09) H 11/19/19 16:24 Problem List - Problems (1) PNA (pneumonia) Assessment/Plan: on abx id on board cxs negative Code(s): J18.9 - PNEUMONIA, UNSPECIFIED ORGANISM Qualifiers: Pneumonia type: due to unspecified organism Laterality: right Lung location: middle lobe of lung Qualified Code(s): J18.9 - Pneumonia, unspecified organism (2) Recurrent falls Assessment/Plan: PT eval Code(s): R29.6 - REPEATED FALLS (3) Weakness Code(s): R53.1 - WEAKNESS
--- NOTE | 2019-11-23 19:29 | PN ---
Progress Note, Physician History of Present Illness: Pt is alert, afebrile, without resp distress. No cough noted. - Current Medication List Current Medications: Active Medications Acetaminophen (Tylenol -) 650 mg PO Q6H PRN PRN Reason: FEVER Atorvastatin Calcium (Lipitor -) 10 mg PO HS [facility] Last Admin: 11/22/19 22:17 Dose: 10 mg Clopidogrel Bisulfate (Plavix -) 75 mg PO DAILY [facility] Last Admin: 11/23/19 09:26 Dose: 75 mg Doxazosin Mesylate (Cardura -) 2 mg PO HS [facility] Last Admin: 11/22/19 22:26 Dose: 2 mg Heparin Sodium (Porcine) (Heparin -) 5,000 unit SQ BID [facility] Last Admin: 11/23/19 09:26 Dose: 5,000 unit Ceftriaxone Sodium 1 gm/ (Dextrose) 50 mls @ 100 mls/hr IVPB DAILY [facility]; Protocol Last Admin: 11/23/19 09:27 Dose: 100 mls/hr Insulin Aspart (Novolog Vial Sliding Scale -) 1 vial SQ ACHS [facility]; Protocol Last Admin: 11/23/19 17:00 Dose: 6 units Losartan Potassium (Cozaar -) 50 mg PO DAILY [facility] Last Admin: 11/23/19 09:26 Dose: 50 mg Metformin HCl (Glucophage -) 850 mg PO BIDAC [facility] Last Admin: 11/23/19 17:01 Dose: 850 mg Pregabalin (Lyrica -) 150 mg PO DAILY [facility] Last Admin: 11/23/19 09:26 Dose: 150 mg Venlafaxine HCl (Effexor Xr -) 37.5 mg PO DAILY [facility] Last Admin: 11/23/19 09:26 Dose: 37.5 mg - Objective Vital Signs: Vital Signs Temperature 98.6 F 11/23/19 17:19 Pulse Rate 86 11/23/19 17:19 Respiratory Rate 20 11/23/19 17:19 Blood Pressure 130/71 11/23/19 17:19 O2 Sat by Pulse Oximetry (%) 94 L 11/23/19 09:00 Constitutional: Yes: No Distress, Calm Cardiovascular: Yes: Regular Rate and Rhythm Respiratory: Yes: CTA Bilaterally Gastrointestinal: Yes: Normal Bowel Sounds, Soft Genitourinary: Yes: WNL Extremities: Yes: WNL Edema: No Integumentary: Yes: WNL Neurological: Yes: Alert Labs: CBC, BMP 11/20/19 06:50 11/20/19 06:50 INR, PTT INR 1.10 (0.83-1.09) H 11/19/19 16:24 Microbiology 11/20/19 14:15 Blood - Peripheral Venous Blood Culture - Preliminary NO GROWTH OBTAINED AFTER 72 HOURS, INCUBATION TO CONTINUE FOR 2 DAYS. 11/20/19 14:15 Blood - Peripheral Venous Blood Culture - Preliminary NO GROWTH OBTAINED AFTER 72 HOURS, INCUBATION TO CONTINUE FOR 2 DAYS. 11/19/19 20:40 Urine - Urine Clean Catch Urine Culture - Final NO GROWTH OBTAINED Problem List - Problems (1) PNA (pneumonia) Code(s): J18.9 - PNEUMONIA, UNSPECIFIED ORGANISM Qualifiers: Pneumonia type: due to unspecified organism Laterality: right Lung location: middle lobe of lung Qualified Code(s): J18.9 - Pneumonia, unspecified organism (2) Recurrent falls Code(s): R29.6 - REPEATED FALLS (3) Weakness Code(s): R53.1 - WEAKNESS Assessment/Plan -- Pt afebrile, no SOB -- continue Ceftriaxone -- cultures neg.
[2019-11-23] MEDS: ATORVASTATIN CA 10 MG TABLET (FP) PO SCH (21:59)
[2019-11-23] MEDS: DOXAZOSIN MESYLATE 2 MG TABLET PO SCH (22:00)
[2019-11-24] MEDS ORDERED: PT OWN MED DRAWER 7, Y5N ONE ×4 (06:02→21:31)
[2019-11-24] MEDS: INSULIN SLIDING SCALE (NOVOLOG) 1 VIAL SQ SCH ×4 (06:31→22:04)
[2019-11-24] MEDS ORDERED: cefTRIAXone SODIUM 1 GM VIAL ONE (11:03)
[2019-11-24] MEDS ORDERED: DEXTROSE 5%-WATER - 50 ML IVPB ONE (11:03)
[2019-11-24] MEDS: CLOPIDOGREL BISULFATE 75 MG TABLET (FP) PO SCH (11:04)
[2019-11-24] MEDS: PREGABALIN 50 MG CAPSULE PO SCH (11:04)
[2019-11-24] MEDS: HEPARIN NA (PORCINE) 5,000 UNITS/ML 1ML VIAL SQ SCH ×2 (11:05→22:03)
[2019-11-24] MEDS: VENLAFAXINE HCL 37.5 MG E.R. CAPSULE PO SCH (11:05)
[2019-11-24] MEDS: CEFTRIAXONE 1 GM in DEXTROSE 5%-WATER - 50 ML IVPB SCH (11:05)
[2019-11-24] MEDS: LOSARTAN POTASSIUM 50 MG TABLET (FP) PO SCH (11:05)
--- NOTE | 2019-11-24 13:23 | PN ---
Progress Note, Physician History of Present Illness: patient stable no new issues - Current Medication List Current Medications: Active Medications Acetaminophen (Tylenol -) 650 mg PO Q6H PRN PRN Reason: FEVER Atorvastatin Calcium (Lipitor -) 10 mg PO HS [facility] Last Admin: 11/23/19 21:59 Dose: 10 mg Clopidogrel Bisulfate (Plavix -) 75 mg PO DAILY [facility] Last Admin: 11/24/19 11:04 Dose: 75 mg Doxazosin Mesylate (Cardura -) 2 mg PO HS [facility] Last Admin: 11/23/19 22:00 Dose: 2 mg Heparin Sodium (Porcine) (Heparin -) 5,000 unit SQ BID [facility] Last Admin: 11/24/19 11:05 Dose: 5,000 unit Ceftriaxone Sodium 1 gm/ (Dextrose) 50 mls @ 100 mls/hr IVPB DAILY [facility]; Protocol Last Admin: 11/24/19 11:05 Dose: 100 mls/hr Insulin Aspart (Novolog Vial Sliding Scale -) 1 vial SQ ACHS [facility]; Protocol Last Admin: 11/24/19 12:08 Dose: 8 units Losartan Potassium (Cozaar -) 50 mg PO DAILY [facility] Last Admin: 11/24/19 11:05 Dose: 50 mg Metformin HCl (Glucophage -) 850 mg PO BIDAC [facility] Last Admin: 11/24/19 06:33 Dose: 850 mg Pregabalin (Lyrica -) 150 mg PO DAILY [facility] Last Admin: 11/24/19 11:04 Dose: 150 mg Venlafaxine HCl (Effexor Xr -) 37.5 mg PO DAILY [facility] Last Admin: 11/24/19 11:05 Dose: 37.5 mg - Objective Vital Signs: Vital Signs Temperature 98.3 F 11/24/19 09:00 Pulse Rate 85 11/24/19 09:00 Respiratory Rate 20 11/24/19 09:00 Blood Pressure 106/53 L 11/24/19 09:00 O2 Sat by Pulse Oximetry (%) 96 11/24/19 09:00 Constitutional: Yes: No Distress, Calm Cardiovascular: Yes: S1, S2 Respiratory: Yes: Regular, Rales Gastrointestinal: Yes: Normal Bowel Sounds, Soft Musculoskeletal: Yes: WNL Extremities: Yes: WNL Neurological: Yes: Alert, Oriented Psychiatric: Yes: Alert, Oriented Labs: CBC, BMP 11/20/19 06:50 11/20/19 06:50 INR, PTT INR 1.10 (0.83-1.09) H 11/19/19 16:24 Assessment/Plan Problem List - Problems (1) PNA (pneumonia) Code(s): J18.9 - PNEUMONIA, UNSPECIFIED ORGANISM Qualifiers: Pneumonia type: due to unspecified organism Laterality: right Lung location: middle lobe of lung Qualified Code(s): J18.9 - Pneumonia, unspecified organism (2) Recurrent falls Code(s): R29.6 - REPEATED FALLS (3) Weakness Code(s): R53.1 - WEAKNESS 4 r/o uti patient with rt middle infiltrate probably aspiration plan continue current mgmt will get a swallow study mri done rest as per the team
--- NOTE | 2019-11-24 13:57 | CONSULT ---
Admitting History and Physical - Admission History of Present Illness: 73 yo M, Georgian speaking, with h/o DM, CVA (left facial droop) who p/w headache , dull right sided chest pain s/p fall (11-18-18) Dx of PNA, r/o aspiration. Selected Entries 11/22/19 11/22/19 11/22/19 05:05 09:00 10:50 Breakfast 75% Diet Tolerated Well Lunch Supper Temperature 98.3 F 98.0 F 11/22/19 11/22/19 11/22/19 12:50 13:00 14:45 Breakfast Diet Tolerated Well Well Lunch 100% Supper 100% Temperature 97.7 F 11/22/19 11/22/19 11/22/19 18:19 18:30 22:00 Breakfast Diet Tolerated Well Lunch Supper 100% Temperature 98.2 F 98.2 F 11/23/19 11/23/19 11/23/19 07:54 09:25 12:50 Breakfast 75% Diet Tolerated Fair Lunch Supper Temperature 98.1 F 97.9 F 11/23/19 11/23/19 11/23/19 14:45 17:19 18:30 Breakfast Diet Tolerated Well Well Lunch 100% Supper 100% Temperature 98.3 F 98.6 F 11/23/19 11/23/19 11/24/19 20:38 23:15 05:00 Breakfast Diet Tolerated Well Lunch Supper 100% Temperature 98 F 98 F 11/24/19 11/24/19 09:00 10:00 Breakfast 100% Diet Tolerated Well Lunch Supper Temperature 98.3 F Laboratory Tests 11/20/19 06:50 WBC 11.7 H This is my first consult with this pt History Source: Patient, Medical Record Limitations to Obtaining History: Language Barrier - Past Medical History [employer]: Yes: CVA Endocrine: Yes: Diabetes Mellitus - Smoking History Smoking history: Unknown if ever smoked Have you smoked in the past 12 months: No - Alcohol/Substance Use Hx Alcohol Use: No History - Admission Reason For Visit: RECURRENT FALLS - Diagnostics X-ray: Report Reviewed - General Mental Status: Alert and Oriented, Awake and Alert, Able to Follow Commands Attention: Intact Ability to Follow Directions: Good Head/Neck Control: Good - Hearing Hearing: Impaired Speech Evaluation - Communication Primary Language: GREENLANDIC Communication: Yes: Within Normal Limits - Speech Production Intelligibility: Yes: WNL - Speech Characteristics Voice Loudness: Normal Voice Pitch: Yes: Normal Voice Phonatory-based Quality: Yes: Normal Speech Pattern: Normal Nasal Resonance: Normal Articulation: Yes: Precise Rate of Speech: Intact - Language/Auditory Comprehension Follows: Yes: 1 Stage Simple Commands - Language/Verbal Expression Functional Communication Status: Yes: WNL - Swallow Evaluation/Bedside Assessment Current Nutritional Intake: Thin Liquids, Other (chopped food) Oral Secretions: Yes: WFL Dentition: Yes: Missing Teeth (few teeth. Good abilty to gum soft foods) Facial Symmetry at Rest: Symmetrical Facial Symmetry on Retraction: Symmetrical Facial Movement: Controlled Against Resistance Opening: Normal Against Resistance Closing: Normal Pucker Lips: Normal Smile: Normal Lingual Movement: Normal, Symmetric Lingual Speed of Movement: Normal Lingual Movement Strgth Against Opposition: Normal Lingual Movement Characteristics: Normal Velopharyngeal Movement: Normal Laryngeal Elevation: WFL Laryngeal Movement: Able to Palpate, Labored,delay initiation Rate of Intake: WFL Bolus Size: WFL Labial Seal: WFL Chewing: Impaired Oral Prep Time: Increased A-P Transit: WFL Pocketing: None Timing of Swallow: Delayed Coughing/Throat Clear: No Change in Voice: No Recommendations - Speech Evaluation, Impression/Plan Impression: Voice euphonic. No dysarthria. Oriented. Verbal. Swallow mildly delayed in onset and rate of laryngeal elevation/depression. Overtly, no signs of aspiration but possibility of intermittent aspiration/silent aspiration exists. Pt's reports that he doesnt cough while eating but "throws up" sometimes. Not noted during hospitalization. - Dysphagia Impressions/Plan Swallowing Skills: Impaired Dysphagia Impressions: Mild Impairment *Silent aspiration: cannot be R/O at bedside Dysphagia Treatment Plan: Small Bites, Chin Tuck/Down, Clear Pocket Food, Trial Feedings, Facilitative Feeding, Safe Rate, 1/2 tsp. at a time, Elevate HOB during feed, OOB for meals, OOB for 1 h. after meals Recommendations: Modified Barium Swallow (if aspiration is suspected) - Recommendations Diet Consistency: Dysphagia Whole (chopped meat/vege) Liquids: Thin Liquids (observe for cough, congestion,fever. If noted, MBS)
--- NOTE | 2019-11-24 17:31 | PN ---
Progress Note, Physician History of Present Illness: doing well - Current Medication List Current Medications: Active Medications Acetaminophen (Tylenol -) 650 mg PO Q6H PRN PRN Reason: FEVER Atorvastatin Calcium (Lipitor -) 10 mg PO HS [facility] Last Admin: 11/23/19 21:59 Dose: 10 mg Clopidogrel Bisulfate (Plavix -) 75 mg PO DAILY [facility] Last Admin: 11/24/19 11:04 Dose: 75 mg Doxazosin Mesylate (Cardura -) 2 mg PO HS [facility] Last Admin: 11/23/19 22:00 Dose: 2 mg Heparin Sodium (Porcine) (Heparin -) 5,000 unit SQ BID [facility] Last Admin: 11/24/19 11:05 Dose: 5,000 unit Ceftriaxone Sodium 1 gm/ (Dextrose) 50 mls @ 100 mls/hr IVPB DAILY [facility]; Protocol Last Admin: 11/24/19 11:05 Dose: 100 mls/hr Insulin Aspart (Novolog Vial Sliding Scale -) 1 vial SQ ACHS [facility]; Protocol Last Admin: 11/24/19 16:47 Dose: 4 units Losartan Potassium (Cozaar -) 50 mg PO DAILY [facility] Last Admin: 11/24/19 11:05 Dose: 50 mg Metformin HCl (Glucophage -) 850 mg PO BIDAC [facility] Last Admin: 11/24/19 16:47 Dose: 850 mg Pregabalin (Lyrica -) 150 mg PO DAILY [facility] Last Admin: 11/24/19 11:04 Dose: 150 mg Venlafaxine HCl (Effexor Xr -) 37.5 mg PO DAILY [facility] Last Admin: 11/24/19 11:05 Dose: 37.5 mg - Objective Vital Signs: Vital Signs Temperature 98.3 F 11/24/19 09:00 Pulse Rate 85 11/24/19 09:00 Respiratory Rate 20 11/24/19 09:00 Blood Pressure 106/53 L 11/24/19 09:00 O2 Sat by Pulse Oximetry (%) 96 11/24/19 09:00 Constitutional: Yes: No Distress HENT: Yes: Atraumatic Neck: Yes: Supple Cardiovascular: Yes: Regular Rate and Rhythm Gastrointestinal: Yes: Normal Bowel Sounds Extremities: Yes: WNL Edema: No Peripheral Pulses WNL: Yes Neurological: Yes: Alert Labs: CBC, BMP 11/20/19 06:50 11/20/19 06:50 INR, PTT INR 1.10 (0.83-1.09) H 11/19/19 16:24 Problem List - Problems (1) PNA (pneumonia) Assessment/Plan: on abx id on board cxs negative Code(s): J18.9 - PNEUMONIA, UNSPECIFIED ORGANISM Qualifiers: Pneumonia type: due to unspecified organism Laterality: right Lung location: middle lobe of lung Qualified Code(s): J18.9 - Pneumonia, unspecified organism (2) Recurrent falls Assessment/Plan: PT eval Code(s): R29.6 - REPEATED FALLS (3) Weakness Code(s): R53.1 - WEAKNESS
[2019-11-24] MEDS: ATORVASTATIN CA 10 MG TABLET (FP) PO SCH (22:02)
[2019-11-24] MEDS: DOXAZOSIN MESYLATE 2 MG TABLET PO SCH (22:03)
[2019-11-25] MEDS: INSULIN SLIDING SCALE (NOVOLOG) 1 VIAL SQ SCH ×2 (06:29→14:27)
[2019-11-25 07:33] LABS: BASO % 0.3 % (0-2.0); EOS % 1.9 % (0-4.5); HEMATOCRIT 34.4 % (35.4-49); HEMOGLOBIN 11.8 GM/dL (11.7-16.9); MCH 31.9 pg (25.7-33.7); MCHC 34.4 g/dl (32.0-35.9); MEAN CELL VOLUME 92.7 fl (80-96); MEAN PLT VOLUME 6.7 fl (7.5-11.1); MONO % 6.1 % (3.8-10.2); NEUT % 77.7 % (42.8-82.8); PLATELET COUNT 320 K/MM3 (134-434); RBC 3.71 M/mm3 (4.00-5.60); RDW 13.3 % (11.9-15.9); WHITE BLOOD COUNT 9.8 K/mm3 (4.0-10.0)
[2019-11-25 08:25] LABS: ALBUMIN 2.2 g/dl (3.4-5.0); BILIRUBIN,TOTAL 0.3 mg/dL (0.2-1); BLOOD UREA NITROGEN 11.6 mg/dL (7-18); CALCIUM 8.4 mg/dL (8.5-10.1); CREATININE 0.6 mg/dL (0.55-1.3); TOT PROT 6.1 g/dl (6.4-8.2)
[2019-11-25] MEDS ORDERED: PT OWN MED DRAWER 7, Y5N ONE ×2 (10:18→11:45)
[2019-11-25] MEDS: LOSARTAN POTASSIUM 50 MG TABLET (FP) PO SCH (10:37)
[2019-11-25] MEDS: VENLAFAXINE HCL 37.5 MG E.R. CAPSULE PO SCH (10:38)
[2019-11-25] MEDS: PREGABALIN 50 MG CAPSULE PO SCH (10:38)
[2019-11-25] MEDS: CLOPIDOGREL BISULFATE 75 MG TABLET (FP) PO SCH (10:39)
[2019-11-25] MEDS: HEPARIN NA (PORCINE) 5,000 UNITS/ML 1ML VIAL SQ SCH (10:41)
[2019-11-25] MEDS ORDERED: INSULIN (NOVOLOG) ASPART 100 UNITS/ML 10ML VIAL ONE (11:45)
--- NOTE | 2019-11-25 13:15 | PN ---
Progress Note, Physician History of Present Illness: patient stable no new issues - Current Medication List Current Medications: Active Medications Acetaminophen (Tylenol -) 650 mg PO Q6H PRN PRN Reason: FEVER Last Admin: 11/24/19 22:13 Dose: 650 mg Atorvastatin Calcium (Lipitor -) 10 mg PO HS [facility] Last Admin: 11/24/19 22:02 Dose: 10 mg Clopidogrel Bisulfate (Plavix -) 75 mg PO DAILY [facility] Last Admin: 11/25/19 10:39 Dose: 75 mg Doxazosin Mesylate (Cardura -) 2 mg PO HS [facility] Last Admin: 11/24/19 22:03 Dose: 2 mg Heparin Sodium (Porcine) (Heparin -) 5,000 unit SQ BID [facility] Last Admin: 11/25/19 10:41 Dose: 5,000 unit Ceftriaxone Sodium 1 gm/ (Dextrose) 50 mls @ 100 mls/hr IVPB DAILY [facility]; Protocol Last Admin: 11/24/19 11:05 Dose: 100 mls/hr Insulin Aspart (Novolog Vial Sliding Scale -) 1 vial SQ ACHS [facility]; Protocol Last Admin: 11/25/19 06:29 Dose: 4 units Losartan Potassium (Cozaar -) 50 mg PO DAILY [facility] Last Admin: 11/25/19 10:37 Dose: 50 mg Metformin HCl (Glucophage -) 850 mg PO BIDAC [facility] Last Admin: 11/25/19 06:36 Dose: Not Given Venlafaxine HCl (Effexor Xr -) 37.5 mg PO DAILY [facility] Last Admin: 11/25/19 10:38 Dose: 37.5 mg - Objective Vital Signs: Vital Signs Temperature 98.1 F 11/25/19 06:50 Pulse Rate 85 11/25/19 06:50 Respiratory Rate 20 11/25/19 06:50 Blood Pressure 102/55 L 11/25/19 06:50 O2 Sat by Pulse Oximetry (%) 95 11/24/19 20:31 Constitutional: Yes: No Distress, Calm Cardiovascular: Yes: S1, S2 Respiratory: Yes: Regular, CTA Bilaterally Gastrointestinal: Yes: Normal Bowel Sounds, Soft Musculoskeletal: Yes: WNL Extremities: Yes: Other Neurological: Yes: Alert, Oriented Psychiatric: Yes: Alert, Oriented Labs: CBC, BMP 11/25/19 06:56 11/25/19 06:56 INR, PTT INR 1.10 (0.83-1.09) H 11/19/19 16:24 Assessment/Plan Problem List - Problems (1) PNA (pneumonia) Code(s): J18.9 - PNEUMONIA, UNSPECIFIED ORGANISM Qualifiers: Pneumonia type: due to unspecified organism Laterality: right Lung location: middle lobe of lung Qualified Code(s): J18.9 - Pneumonia, unspecified organism (2) Recurrent falls Code(s): R29.6 - REPEATED FALLS (3) Weakness Code(s): R53.1 - WEAKNESS 4 r/o uti patient with rt middle infiltrate probably aspiration plan continue current mgmt rest as per th eteam
--- NOTE | 2019-11-25 13:54 | DS ---
Physical Examination Vital Signs: Vital Signs Temperature 98.2 F 11/25/19 09:00 Pulse Rate 79 11/25/19 09:00 Respiratory Rate 20 11/25/19 09:00 Blood Pressure 122/77 11/25/19 09:00 O2 Sat by Pulse Oximetry (%) 95 11/24/19 20:31 Constitutional: Yes: No Distress HENT: Yes: Atraumatic Neck: Yes: Supple Cardiovascular: Yes: Regular Rate and Rhythm Respiratory: Yes: CTA Bilaterally Gastrointestinal: Yes: Normal Bowel Sounds Extremities: Yes: WNL Edema: No Neurological: Yes: Alert, Oriented Labs: CBC, BMP 11/25/19 06:56 11/25/19 06:56 Discharge Summary Problems reviewed: Yes Reason For Visit: RECURRENT FALLS Current Active Problems PNA (pneumonia) (Acute) Recurrent falls (Acute) Weakness (Acute) Condition: Stable - Instructions Referrals: Dalton Ramirez [Primary Care Provider] - Disposition: ALF FACILITY - Home Medications Comprehensive Discharge Medication List: Ambulatory Orders Clopidogrel Bisulfate [Plavix] 75 mg PO DAILY 11/22/19 Doxazosin Mesylate [Cardura -] 2 mg PO HS 11/22/19 Insulin Glargine,Hum.rec.anlog [Basaglar Kwikpen U-100] 20 unit SQ HS 11/22/19 Losartan Potassium 50 mg PO DAILY 11/22/19 Mirtazapine [Remeron -] 15 mg PO HS 11/22/19 Pregabalin [Lyrica -] 150 mg PO DAILY 11/22/19 Simvastatin 5 mg PO HS 11/22/19 Venlafaxine HCl ER [Effexor Xr -] 37.5 mg PO DAILY 11/22/19 metFORMIN HCL [Metformin HCl] 850 mg PO BIDAC 11/22/19 Finasteride 5 mg PO DAILY 11/23/19 no abx per id DC [facility]
[2019-11-25 14:54] VITALS: BP 104/65; PULSE 94; TEMP 97.6
== END 2019-11-25 15:55 | DRG 178 ==
LOC: JER 14:16 → JERBED 17:11 → OBSVTOIN 20:57 → J8W 11-20 18:55
PROVIDERS: ADMIT Internal Medicine; ATTEND Internal Medicine
DX: J69.0 Pneumonitis due to inhalation of food and vomit (principal); M50.00 Cervical disc disorder with myelopathy, unspecified cervical region; R29.6 Repeated falls; R53.1 Weakness; E11.9 Type 2 diabetes mellitus without complications; I69.392 Facial weakness following cerebral infarction; Z86.73 Personal history of transient ischemic attack (TIA), and cerebral infarction without residual deficits; E86.0 Dehydration; R42 Dizziness and giddiness
CPT/HCPCS: 36415; 70450-TC; 71045-TC-FY; 71046-TC-FY; 72141-TC; 74230-TC-FY; 80053; 81003; 82550; 82607; 82962; 83690; 83735; 84484; 85025; 85610; 85730; 87040; 87086; 87804; 92611-GN; 93005; 93010; 97116-GP; 97161-GP; 99283-25; G0008; G0378; J0131; J1644; J7030; Q2036